=== PATIENT | male | born 1970 | race African-American/Black ===

== ENCOUNTER 2024-12-09 17:38 | Emergency (ER) | payer MEDICAID ==
[~2024-12-09] VITALS: Ht 167.6 cm; Wt 115.0 kg
[2024-12-09 17:44] VITALS: O2SAT 100
[2024-12-09 19:01] VITALS: BP 124/71; PULSE 91; RESP 16; TEMP 37.3; O2SAT 100
[2024-12-09] MEDS ORDERED: IBUP-2028 MT (19:07)
[2024-12-09] MEDS ORDERED: ACET-2708 MT (19:07)
== END 2024-12-09 19:41 | disposition home or self-care (01) ==
LOC: ER 17:38
DX: S00.03XA Contusion of scalp, initial encounter (principal); E78.00 Pure hypercholesterolemia, unspecified; I10 Essential (primary) hypertension; Y04.0XXA Assault by unarmed brawl or fight, initial encounter; Y93.89 Activity, other specified; Y92.89 Other specified places as the place of occurrence of the external cause; Y99.8 Other external cause status
CPT/HCPCS: 70486; 99284